=== PATIENT | female | born 1985 | race Caucasian/White ===

== ENCOUNTER 2023-05-10 19:59 | Emergency (ER) | payer SELFPAY ==
[~2023-05-10] VITALS: Ht 154.9 cm; Wt 86.2 kg
[~2023-05-10 19:59] MED LIST: ALBU90OI INH; ANTIDEPRESSANT; AZIT250 PO; BCP; BENZ100A PO; CEPH500 PO; CLIN300 PO; CODBUTACEC PO; CRUTCH4 USE; CYCL10 PO; Cleocin HCl150 MG PO; DIAZ5 PO; DIPH50 PO; DIVA500EC; DOXY100 PO; ESCI10; ESCI10 PO; ESTEST.625 PO; ESTR.05TPB; FAMO20 PO; FLUO20; HYDACE5 PO; IBUHYD PO; LAMO25; LANS30EC PO; LEVFLO500 PO; MEDR10 PO; MEDR150I; METPRE4DP PO; MULTI VITAMIN1 EACH PO; MULVITMINE; NAPR220 PO; NAPR500 PO; NAPR550 PO; Naprosyn500 MG PO; OXYACE5T PO; PARO20; PERM5TC TOP; PHENA200 PO; PRED20 PO; PROACE100 PO; PRODEXEL PO; PROM25 PO; PROP60 PO; QUET100; QUET25; RXCLIN PO; RXHYDACE PO; RXPROACE PO; RXPROM25 PO; RXSULTRIDS PO; SEIZURE MED; SERT100; SULF10OPSA OD; SULTRIDS; SULTRIDS PO; SUMA25 PO; TOPI100; TOPI25; TRAM50 PO; TRAZ50 PO; Ultram50 MG PO; Valium5 MG PO; Zofran4 MG PO; [UNRECOGNIZED DRUG - REMARK]; [UNRECOGNIZED DRUG - REMARK]
[2023-05-10 22:50] VITALS: BP 137/84
== END 2023-05-10 22:50 | disposition home or self-care (01) ==
LOC: ER 19:59
DX: G43.909 Migraine, unspecified, not intractable, without status migrainosus (principal); Z88.8 Allergy status to other drugs, medicaments and biological substances; Z88.5 Allergy status to narcotic agent; Z88.1 Allergy status to other antibiotic agents
CPT/HCPCS: 96374; 96375; 99283-25; A9270; J0780; J1885; J7030

== ENCOUNTER 2025-02-05 19:51 | Emergency (ER) | payer SELFPAY ==
[~2025-02-05] VITALS: Ht 154.9 cm; Wt 88.5 kg
[2025-02-05 20:57] LABS: BASOPHILS ABSOLUTE AUTO 0.07 K/mm3 (0.00-0.23); BASOPHILS PERCENT AUTO 1 % (0-2); EOSINOPHILS ABSOLUTE AUTO 0.15 K/mm3 (0.00-0.68); EOSINOPHILS PERCENT AUTO 1 % (0-6); Hematocrit 39.5 % (33.0-51.0); Hemoglobin 13.4 g/dL (11.5-16.0); IMMATURE GRAN ABSOLUTE AUTO 0.02 K/mm3 (0.00-0.10); IMMATURE GRAN PERCENT AUTO 0 % (0-1); LYMPHOCYTES ABSOLUTE AUTO 4.46 K/mm3 (0.84-5.20); LYMPHOCYTES PERCENT AUTO 42 % (21-46); MONOCYTES ABSOLUTE AUTO 0.64 K/mm3 (0.16-1.47); MONOCYTES PERCENT AUTO 6 % (4-13); Mean Corpuscular HGB 30.5 pg (26.0-34.0); Mean Corpuscular HGB Conc 33.9 g/dL (31.5-36.5); Mean Corpuscular Volume 90 fL (80-100); Mean Platelet Volume 10.2 fL (9.1-12.4); NEUTROPHILS ABSOLUTE AUTO 5.41 K/mm3 (1.96-9.15); NEUTROPHILS PERCENT AUTO 50 % (41-73); Platelet Count 301 K/mm3 (150-400); RDW Coefficient Variation 13.8 % (11.7-14.2); RDW Standard Deviation 45.2 fL (35.1-46.3); White Blood Cell Count 10.75 K/mm3 (4.00-11.30)
[2025-02-05 21:05] LABS: CORONAVIRUS COVID-19 AG Negative (NEGATIVE); INFLUENZA A AG Negative (NEGATIVE); INFLUENZA B AG Negative (NEGATIVE)
[2025-02-05 21:22] LABS: Albumin, Blood 3.6 g/dL (3.4-5.0); Bilirubin, Total 0.2 mg/dL (0.1-1.0); Bun/Creatinine Ratio 10.8 (12.0-20.0); Creatinine, Blood 0.83 mg/dL (0.40-1.00); Globulin, Blood 3.5 g/dL (2.2-4.0); Potassium, Blood 3.7 mmol/L (3.5-5.5); Total Protein, Blood 7.1 g/dL (6.4-8.2)
[2025-02-05 22:03] VITALS: BP 144/96
[2025-02-05] MEDS ORDERED: PredniSONE 20 MG Tab PO ONE (22:55)
[2025-02-05] MEDS ORDERED: RX Prepack Albuterol 1 PREPACK/6.7 GM INH UD ONE (22:55)
[2025-02-05] MEDS ORDERED: Ipratropium/Albuterol SulF 2.5-0.5MG/3 ML Amp INH ONE (22:55)
[2025-02-05] MEDS ORDERED: DELTASONE20 MG PO (22:56)
== END 2025-02-05 23:14 | disposition home or self-care (01) ==
LOC: ER 19:51
PROVIDERS: Student in an Organized Health Care Education/Training Program
DX: J40 Bronchitis, not specified as acute or chronic (principal); J06.9 Acute upper respiratory infection, unspecified; R05.9 Cough, unspecified; F17.200 Nicotine dependence, unspecified, uncomplicated; Z88.5 Allergy status to narcotic agent; Z88.0 Allergy status to penicillin; Z88.8 Allergy status to other drugs, medicaments and biological substances; Z11.52 Encounter for screening for COVID-19
CPT/HCPCS: 71046; 80053; 83605; 85025; 87428-QW; 93005; 93010; 99284-25; A9270; J7512